=== PATIENT | female | born 1985 | race Caucasian/White ===

== ENCOUNTER 2017-10-19 12:16 | Outpatient (CLI) | payer OTHER ==
[2017-10-19 12:49] LABS: ADD MAN DIFF? NO
[2017-10-19 12:53] LABS: BASOPHIL # 0.1 10^3/ul (0.0-0.1); BASOPHILS % 0.6 % (0.0-2.0); EOSINOPHILS # 0.2 10^3/ul (0.0-0.5); EOSINOPHILS % 1.9 % (0.0-7.0); HEMATOCRIT 30.9 % (37.0-47.0); HEMOGLOBIN 9.4 g/dl (12.0-16.0); LYMPHOCYTES # 1.4 10^3/ul (0.8-2.9); LYMPHOCYTES % 11.6 % (15.0-51.0); MEAN CORPUSCULAR HEMOGLOBIN 21.2 pg (29.0-33.0); MEAN CORPUSCULAR HGB CONC 30.4 g/dl (32.0-37.0); MEAN CORPUSCULAR VOLUME 69.8 fl (82.0-101.0); MEAN PLATELET VOLUME 10.6 fl (7.4-10.4); MONOCYTE # 0.9 10^3/ul (0.3-0.9); MONOCYTES % 7.3 % (0.0-11.0); NEUTROPHIL # 9.1 10^3/ul (1.6-7.5); NEUTROPHILS % 76.7 % (39.0-77.0); PLATELET COUNT 302 10^3/UL (140-415); RED BLOOD COUNT 4.43 10^6/ul (4.20-5.40); RED CELL DISTRIBUTION WIDTH 16.1 % (11.5-14.5)
[2017-10-19 12:53] LABS: WHITE BLOOD COUNT 11.9 10^3/ul (4.8-10.8)
[2017-10-19 12:58] LABS: ADD UMIC NO; UR ASCORBIC ACID NEGATIVE (NEGATIVE); UR BILIRUBIN (Dip) NEGATIVE (NEGATIVE); UR BLOOD (Dip) NEGATIVE (NEGATIVE); UR CLARITY CLEAR (CLEAR); UR COLOR YELLOW (YELLOW); UR GLUCOSE (Dip) NEGATIVE (NEGATIVE); UR KETONES (Dip) NEGATIVE (NEGATIVE); UR LEUKOCYTE ESTERASE (Dip) NEGATIVE Leu/ul (NEGATIVE); UR NITRITE (Dip) NEGATIVE (NEGATIVE); UR SPECIFIC GRAVITY (Dip) 1.016 (1.003-1.030); UR TOTAL PROTEIN (Dip) NEGATIVE (NEGATIVE); UR UROBILINOGEN (Dip) 1+ mg/dL (NEGATIVE)
== END 2017-10-19 13:34 | disposition left against medical advice (07) ==
LOC: OBT 12:16 → L-D 12:16 → OBT 13:34
DX: O23.03 Infections of kidney in pregnancy, third trimester (principal); Z3A.36 36 weeks gestation of pregnancy
CPT/HCPCS: 81003; 85025; 87086

== ENCOUNTER 2018-01-04 09:18 | Inpatient (IN) | payer OTHER ==
[2018-01-04] MEDS ORDERED: CARBOPROST 250 MCG INJ IM (10:00)
[2018-01-04] MEDS ORDERED: METHYLERGONOVINE 0.2 MG INJ IM (10:00)
[2018-01-04] MEDS ORDERED: OXYTOCIN 30 UNITS/LR 500 ML IV (10:00)
[2018-01-04] MEDS ORDERED: IBUPROFEN 600 MG TAB PO (10:00)
[2018-01-04] MEDS ORDERED: MISOPROSTOL 200 MCG TAB PR (10:00)
[2018-01-04] MEDS: LACTATED RINGER'S 1,000 ML IV ×3 (10:37→20:40)
[2018-01-04 11:01] LABS: ADD MAN DIFF? NO
[2018-01-04 11:13] LABS: ABNORMAL IP MESSAGE 1; BASOPHILS % 0.5 % (0.0-2.0); EOSINOPHILS # 0.2 10^3/ul (0.0-0.5); EOSINOPHILS % 1.9 % (0.0-7.0); HEMATOCRIT 26.2 % (37.0-47.0); HEMOGLOBIN 7.4 g/dl (12.0-16.0); LYMPHOCYTES # 1.3 10^3/ul (0.8-2.9); LYMPHOCYTES % 15.6 % (15.0-51.0); MEAN CORPUSCULAR HEMOGLOBIN 18.1 pg (29.0-33.0); MEAN CORPUSCULAR HGB CONC 28.2 g/dl (32.0-37.0); MEAN CORPUSCULAR VOLUME 64.1 fl (82.0-101.0); MONOCYTE # 0.6 10^3/ul (0.3-0.9); MONOCYTES % 7.3 % (0.0-11.0); NEUTROPHILS % 73.6 % (39.0-77.0); NUCLEATED RED BLOOD CELLS% 0.5 /100WBC (0.0-0.0); PLATELET COUNT 174 10^3/UL (140-415); RED BLOOD COUNT 4.09 10^6/ul (4.20-5.40); RED CELL DISTRIBUTION WIDTH 18.7 % (11.5-14.5)
[2018-01-04 11:13] LABS: WHITE BLOOD COUNT 8.1 10^3/ul (4.8-10.8)
[2018-01-04 11:32] LABS: POSITIVE DIFF @See below
[2018-01-04 11:43] LABS: PROTIME 12.2 Sec (11.9-14.9)
[2018-01-04 11:44] LABS: PARTIAL THROMBOPLASTIN TIME 28.6 Sec (23.0-35.0)
[2018-01-04 12:06] LABS: HEPATITIS B SURFACE ANTIGEN NEGATIVE (NEGATIVE)
[2018-01-04] MEDS: MISOPROSTOL 50 MCG CAPSULE PO ×2 (12:27→16:43)
[2018-01-04 14:29] LABS: ADD UMIC NO; UR ASCORBIC ACID NEGATIVE (NEGATIVE); UR BILIRUBIN (Dip) NEGATIVE (NEGATIVE); UR BLOOD (Dip) NEGATIVE (NEGATIVE); UR CLARITY CLEAR (CLEAR); UR COLOR YELLOW (YELLOW); UR GLUCOSE (Dip) NEGATIVE (NEGATIVE); UR KETONES (Dip) NEGATIVE (NEGATIVE); UR LEUKOCYTE ESTERASE (Dip) NEGATIVE Leu/ul (NEGATIVE); UR NITRITE (Dip) NEGATIVE (NEGATIVE); UR SPECIFIC GRAVITY (Dip) 1.017 (1.003-1.030); UR TOTAL PROTEIN (Dip) NEGATIVE (NEGATIVE); UR UROBILINOGEN (Dip) NEGATIVE (NEGATIVE)
[2018-01-04 14:54] LABS: AMPHETAMINE/METHAMPHETAMINE POSITIVE (NEGATIVE); BARBITURATES NEGATIVE (NEGATIVE); BENZODIAZEPINES NEGATIVE (NEGATIVE); CANNABINOIDS NEGATIVE (NEGATIVE); COCAINE NEGATIVE (NEGATIVE); OPIATES NEGATIVE (NEGATIVE)
[2018-01-04] MEDS: BUTORPHANOL 2 MG INJ IV (19:56)
[2018-01-04 20:48] LABS: RAPID PLASMA REAGIN NONREACTIVE (NR)
[2018-01-05] MEDS: LACTATED RINGER'S 1,000 ML IV ×4 (01:51→19:27)
[2018-01-05] MEDS ORDERED: NALOXONE (0.4 MG/ML) INJ IV (02:30)
[2018-01-05] MEDS ORDERED: DIPHENHYDRAMINE 50 MG INJ IV (02:30)
[2018-01-05] MEDS ORDERED: ONDANSETRON 4 MG INJ IV (02:30)
[2018-01-05] MEDS: MISOPROSTOL 50 MCG CAPSULE PO (03:22)
[2018-01-05] MEDS: FENTAnyl 2MCG/ML-ROPIV 0.2% 100 ML BAG EPI ×2 (11:32→21:51)
[2018-01-05] MEDS: OXYTOCIN 30 UNITS/LR 500 ML IV (21:13)
[2018-01-06] MEDS ORDERED: LIDOCAINE 1% (MPF) 30 ML INJ (01:46)
[2018-01-06] MEDS: LIDOCAINE 1% (MPF) 30 ML INJ INJ (02:38)
[2018-01-06] MEDS: OXYTOCIN 30 UNITS/LR 500 ML IV ×4 (03:15→09:36)
[2018-01-06] MEDS ORDERED: DIPHENHYDRAMINE 25 MG CAP PO (04:00)
[2018-01-06] MEDS ORDERED: OXYTOCIN 30 UNITS/LR 500 ML IV (04:00)
[2018-01-06] MEDS ORDERED: ZOLPIDEM 5 MG TAB PO (04:00)
[2018-01-06] MEDS ORDERED: ONDANSETRON 4 MG INJ IV (04:00)
[2018-01-06] MEDS ORDERED: HYDROCODONE/APAP (5/325) TAB PO (04:00)
[2018-01-06] MEDS ORDERED: CARBOPROST 250 MCG INJ IM (04:00)
[2018-01-06] MEDS ORDERED: ACETAMINOPHEN/CODEINE #3 TAB PO (04:00)
[2018-01-06] MEDS ORDERED: NACL 0.9% 3 ML SYG IV (04:00)
[2018-01-06] MEDS ORDERED: morphine 2 MG INJ IV (04:00)
[2018-01-06] MEDS: HYDROCODONE/APAP (5/325) TAB PO ×2 (04:00→10:00)
[2018-01-06] MEDS: IBUPROFEN 600 MG TAB PO ×4 (05:41→23:51)
[2018-01-06] MEDS: ACETAMINOPHEN 325 MG TAB PO ×2 (05:42→09:32)
[2018-01-06] MEDS: LANOLIN 7 GM TUBE TOP (05:42)
[2018-01-06] MEDS: WITCH HAZEL/GLYCERIN PAD PR (05:42)
[2018-01-06] MEDS: MISOPROSTOL 200 MCG TAB PR (06:00)
[2018-01-06 07:26] LABS: HEMATOCRIT 25.9 % (37.0-47.0); HEMOGLOBIN 7.2 g/dl (12.0-16.0)
[2018-01-06] MEDS: SENNA/DOCUSATE NA (8.6MG/50MG) TAB PO ×2 (09:19→23:50)
[2018-01-06] MEDS: FERROUS SULFATE (EC) 325 MG TAB PO ×2 (16:11→23:50)
[2018-01-07] MEDS: IBUPROFEN 600 MG TAB PO ×3 (05:49→18:05)
[2018-01-07] MEDS: FERROUS SULFATE (EC) 325 MG TAB PO ×2 (11:17→13:18)
[2018-01-07] MEDS: SENNA/DOCUSATE NA (8.6MG/50MG) TAB PO (11:17)
== END 2018-01-07 20:35 | disposition home or self-care (01) | DRG 807 ==
LOC: L-D 09:18 → PP1 01-06 04:44
PROVIDERS: Obstetrics & Gynecology
PROC: 10E0XZZ Delivery of Products of Conception, External Approach (ICD-10-PCS; principal; 2018-01-05)
PROC: 0HQ9XZZ Repair Perineum Skin, External Approach (ICD-10-PCS; 2018-01-05)
PROC: 3E033VJ Introduction of Other Hormone into Peripheral Vein, Percutaneous Approach (ICD-10-PCS; 2018-01-05)
DX: O70.0 First degree perineal laceration during delivery (principal); Z37.0 Single live birth; Z3A.39 39 weeks gestation of pregnancy
CPT/HCPCS: 62319; 76815; 80307; 81003; 82962; 85014; 85018; 85025; 85610; 85730; 86592; 86850; 86900; 86901; 87086; 87340; 90686; 99464